=== PATIENT | female | born 1990 | race Hispanic/Latino ===

== ENCOUNTER 2017-08-07 07:12 | Emergency (ER) | payer BC ==
[~2017-08-07] VITALS: Ht 157.5 cm; Wt 97.5 kg
[~2017-08-07 07:12] MED LIST: LEVAQUIN500 MG PO; LEVEMIR100 UNIT/1 SC; METFORMIN HCL500 M2 PO; METFORMIN HCL500 MG PO; NOVOLOG MI100 UNITS/ SC; TYLENOL WITH C1 EACH PO
[2017-08-07] MEDS ORDERED: SODIUM CHLORIDE 0.9% 1000ML 1,000 ML IV SCH (08:15)
[2017-08-07] MEDS ORDERED: PROMETHAZINE 12.5MG/ NACL 0.9% 12.5 MG/50 ML BAG IV ONE (08:15)
[2017-08-07] MEDS ORDERED: SODIUM CHLORIDE 0.9% 1000ML 1,000 ML IV ONE (08:23)
[2017-08-07] MEDS ORDERED: POTASSIUM CHLORIDE 20 MEQ TAB CR PO STA (08:47)
[2017-08-07] MEDS ORDERED: POTASSIUM CHLORIDE 10 MEQ/100 ML IV ONE (09:00)
[2017-08-07] MEDS ORDERED: ACETAMINOPHEN 325 MG TAB PO ONE (09:45)
== END 2017-08-07 13:15 | disposition home or self-care (01) ==
LOC: FSED 07:12
DX: O21.1 Hyperemesis gravidarum with metabolic disturbance (principal); O23.11 Infections of bladder in pregnancy, first trimester; I10 Essential (primary) hypertension; G43.909 Migraine, unspecified, not intractable, without status migrainosus
CPT/HCPCS: 36415; 76705; 76801; 80053; 81003; 84702; 85025; 87086; 99284; J2550; J3480; J7030

== ENCOUNTER 2017-09-10 14:38 | Emergency (ER) | payer BC ==
[~2017-09-10] VITALS: Ht 157.5 cm; Wt 97.5 kg
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
[2017-09-10] MEDS ORDERED: KETOROLAC TROMETHAMINE 60 MG/2 ML VIAL IM ONE (15:30)
== END 2017-09-10 18:33 | disposition home or self-care (01) ==
LOC: FSED 14:38 → ER 18:33
DX: M79.631 Pain in right forearm (principal); I80.8 Phlebitis and thrombophlebitis of other sites; E11.9 Type 2 diabetes mellitus without complications
CPT/HCPCS: 81025; 93971; 99284

== ENCOUNTER 2024-08-05 01:28 | Emergency (ER) | payer BC, OTHER ==
[~2024-08-05] VITALS: Ht 157.5 cm; Wt 74.8 kg
[2024-08-05 01:40] VITALS: PULSE 99; RESP 18; TEMP 98.6; O2SAT 100
[2024-08-05] MEDS ORDERED: LIDOCAINE HCL 1% LOCAL INJ 20 ML VIAL ONE (01:53)
[2024-08-05] MEDS ORDERED: ULTRAM 50MG50 MG PO (02:36)
[2024-08-05] MEDS ORDERED: DOXYCYCLINE HY100 MG PO (02:36)
[2024-08-05] MEDS: LIDOCAINE HCL 1% LOCAL INJ 20 ML VIAL INJ ONE (02:56)
== END 2024-08-05 03:02 | disposition home or self-care (01) ==
LOC: ER 01:56
DX: L02.811 Cutaneous abscess of head [any part, except face] (principal)
CPT/HCPCS: 10060; 99283; J2003